=== PATIENT | male | born 1990 | race Caucasian/White ===

== ENCOUNTER 2021-09-20 09:06 | Inpatient (IN) | payer OTHER ==
[~2021-09-20] VITALS: Ht 160 cm; Wt 62.5 kg
[2021-09-20 10:43] LABS: BASO # 0.1 10^3/uL (0.0-0.2); BASO % 0.6 % (0.0-1.0); EOS % 0.4 % (0.0-3.0); HEMATOCRIT 41.2 % (42.0-52.0); LYMPH # 1.5 10^3/uL (1.5-5.0); LYMPH % 19.6 % (24.0-44.0); MEAN CORPUSCULAR HEMOGLOBIN 28.9 pg (27.0-33.0); MEAN CORPUSCULAR VOLUME 84.9 fl (80.0-96.0); MONO # 0.6 10^3/uL (0.0-0.8); MONO % 7.4 % (2.0-8.0); NEUTROPHILS # 5.5 10^3/uL (1.5-8.5); NEUTROPHILS % 71.5 % (36.0-66.0); PLATELET COUNT, AUTOMATED 230 10^3/uL (150-450); RED BLOOD COUNT 4.85 10^6/uL (4.30-6.10); WHITE BLOOD COUNT 7.8 10^3/uL (4.0-10.0)
[2021-09-20 10:54] LABS: INR 1.01; PROTHROMBIN TIME 13.7 SECONDS (12.7-14.5)
[2021-09-20 11:12] LABS: BLOOD UREA NITROGEN 16 MG/DL (7-18); CALCIUM LEVEL 10.3 MG/DL (8.5-10.1); CARBON DIOXIDE LEVEL 31 MEQ/L (21-32); CHLORIDE LEVEL 106 MEQ/L (98-107); GLOMERULAR FILTRATION RATE > 60.0 (>60); GLUCOSE, FASTING 77 MG/DL (70-100); POTASSIUM SERUM 4.5 MEQ/L (3.5-5.1); SODIUM LEVEL 142 MEQ/L (136-145)
[2021-09-20 11:21] LABS: CK-MB VALUE MASS 2.5 NG/ML (<3.6); MB/CK RELATIVE INDEX 1.13 (< OR =4)
[2021-09-20 11:43] LABS: RSV AMPLIFICATION NEGATIVE (NEGATIVE)
[2021-09-20 12:23] LABS: CK-MB VALUE MASS 2.5 NG/ML (<3.6); MB/CK RELATIVE INDEX 1.22 (< OR =4)
[2021-09-20] MEDS ORDERED: ASPIRIN 81 MG CHEW TABLET PO ONE (12:30)
[2021-09-20 16:17] LABS: CK-MB VALUE MASS 2.1 NG/ML (<3.6); MB/CK RELATIVE INDEX 1.07 (< OR =4)
[2021-09-20 18:05] LABS: C REACTIVE PROTEIN QUANTITATIV < 0.30 MG/DL (0.00-0.30)
[2021-09-20] MEDS ORDERED: ISOVUE-370 76% 100ML VIAL As Ordered ONE (18:20)
[2021-09-20 18:37] LABS: ERYTHROCYTE SEDIMENTATION RATE 3 mm/hr (0-15)
[2021-09-20] MEDS ORDERED: HOME MED LIST COMPLETE! XX SCH (20:20)
[2021-09-20] MEDS ORDERED: MAALOX 30 ML SUSP *UDC PO PRN (21:10)
[2021-09-20] MEDS ORDERED: ACETAMINOPHEN TAB 650MG DOSE (2X325MG) PO PRN (21:10)
[2021-09-20] MEDS ORDERED: MOM 30ML SUSPENSION UDC PO PRN (21:10)
[2021-09-20 23:24] LABS: ALBUMIN 3.8 GM/DL (3.2-5.2); BILIRUBIN,DIRECT 0.1 MG/DL (0.0-0.2); BILIRUBIN,TOTAL 0.5 MG/DL (0.2-1.0); CK-MB VALUE MASS 1.3 NG/ML (<3.6); MB/CK RELATIVE INDEX 0.84 (< OR =4); TOTAL PROTEIN 7.3 GM/DL (6.4-8.2)
[2021-09-20] MEDS: NS 1,000 ML IV ONE (23:38)
[2021-09-20 23:50] VITALS: BP 112/75
[2021-09-20 23:52] LABS: APPEARANCE, URINE CLEAR (CLEAR); BACTERIA, URINE AUTO NEGATIVE (NEGATIVE); BILIRUBIN, URINE AUTO NEGATIVE (NEGATIVE); BLOOD, URINE BLOOD NEGATIVE (NEGATIVE); COLOR, URINE STRAW (YELLOW); GLUCOSE, URINE (UA) AUTO NEGATIVE (NEGATIVE); KETONE, URINE AUTO NEGATIVE (NEGATIVE); LEUKOCYTE ESTERASE, URINE AUTO NEGATIVE (NEGATIVE); NITRITE, URINE AUTO NEGATIVE (NEGATIVE); PROTEIN, URINE AUTO NEGATIVE (NEGATIVE); RBC, URINE AUTO 1 /HPF (0-3); SPECIFIC GRAVITY URINE AUTO 1.048 (1.002-1.035); SQUAMOUS EPITHELIAL CELL UR AU 0 /HPF (0-6); UROBILINOGEN, URINE AUTO 0.2 mg/dL (0.0-2.0); WBC, URINE AUTO 1 /HPF (0-3)
[2021-09-21] MEDS: NS 1,000 ML IV ONE (00:44)
[2021-09-21 02:11] LABS: CK-MB VALUE MASS 1.5 NG/ML (<3.6)
[2021-09-21 06:00] VITALS: BP 99/55
[2021-09-21 06:34] LABS: HEMATOCRIT 40.4 % (42.0-52.0); HEMOGLOBIN 13.6 g/dl (13.5-17.5); MEAN CORPUSCULAR HEMOGLOBIN 28.5 pg (27.0-33.0); MEAN CORPUSCULAR HGB CONC 33.7 g/dl (32.0-36.5); MEAN CORPUSCULAR VOLUME 84.7 fl (80.0-96.0); RED BLOOD COUNT 4.77 10^6/uL (4.30-6.10); WHITE BLOOD COUNT 6.7 10^3/uL (4.0-10.0)
[2021-09-21 06:35] LABS: PLATELET COUNT, AUTOMATED 239 10^3/uL (150-450)
[2021-09-21 06:56] LABS: CK-MB VALUE MASS 1.3 NG/ML (<3.6); MB/CK RELATIVE INDEX 1.02 (< OR =4)
[2021-09-21 07:00] LABS: ALBUMIN 3.4 GM/DL (3.2-5.2); ALT/SGPT 112 U/L (12-78); BILIRUBIN,TOTAL 0.6 MG/DL (0.2-1.0); BLOOD UREA NITROGEN 17 MG/DL (7-18); CALCIUM LEVEL 8.5 MG/DL (8.5-10.1); CARBON DIOXIDE LEVEL 30 MEQ/L (21-32); CHLORIDE LEVEL 109 MEQ/L (98-107); CREATININE FOR GFR 1.05 MG/DL (0.70-1.30); GLOMERULAR FILTRATION RATE > 60.0 (>60); GLUCOSE, FASTING 91 MG/DL (70-100); POTASSIUM SERUM 4.4 MEQ/L (3.5-5.1); SODIUM LEVEL 140 MEQ/L (136-145); TOTAL PROTEIN 6.3 GM/DL (6.4-8.2)
[2021-09-21 10:32] LABS: ETHYL ALCOHOL (ETHANOL) < 0.003 % (0.000-0.010)
[2021-09-21 10:48] LABS: HEPATITIS B SURFACE ANTIGEN NEGATIVE (NEGATIVE)
[2021-09-21 10:53] LABS: CORTISOL AM 16.1 UG/DL (4.3-22.4); FERRITIN 86 NG/ML (26-388); THYROID STIMULATING HORMONE 0.725 uIU/ML (0.358-3.740)
[2021-09-21 11:14] LABS: HEPATITIS C VIRUS ABY INDEX 0.1 INDEX (<0.8)
[2021-09-21 11:15] LABS: HEPATITIS B CORE ANTIBODY IGM NEGATIVE (NEGATIVE)
[2021-09-21 11:30] VITALS: BP_SYST 102; BP_SYST 108; BP_SYST 114; BP_DIAS 63; BP_DIAS 71; BP_DIAS 72
[2021-09-21 14:32] VITALS: BP 109/73
[2021-09-21 20:39] LABS: AMPHETAMINES LEVEL URINE NEGATIVE (NEGATIVE); BARBITURATES URINE NEGATIVE (NEGATIVE); BENZODIAZEPINES URINE NEGATIVE (NEGATIVE); CANNABINOIDS URINE NEGATIVE (NEGATIVE); COCAINE METABOLITE URINE NEGATIVE (NEGATIVE); METHADONE URINE NEGATIVE (NEGATIVE); OPIATES URINE NEGATIVE (NEGATIVE); PHENCYCLIDINE URINE NEGATIVE (NEGATIVE)
[2021-09-21 22:00] VITALS: BP 110/72
[2021-09-22 02:00] VITALS: BP_SYST 104; BP_SYST 109; BP_SYST 116; BP_DIAS 67; BP_DIAS 69; BP_DIAS 72
[2021-09-22 06:00] VITALS: BP 101/59
[2021-09-22 14:00] VITALS: BP 121/70
== END 2021-09-22 21:40 | disposition home or self-care (01) | DRG 312 ==
LOC: M ED 09:06 → M ED INP 21:08 → ENRESERV 22:51 → M MSPAV 23:50
PROVIDERS: ADMIT Family Medicine; ATTEND Internal Medicine Nephrology
DX: R55 Syncope and collapse (principal); R94.5 Abnormal results of liver function studies; R77.8 Other specified abnormalities of plasma proteins; Z20.822 Contact with and (suspected) exposure to COVID-19; Z88.2 Allergy status to sulfonamides; Z88.8 Allergy status to other drugs, medicaments and biological substances; R74.01 Elevation of levels of liver transaminase levels

== ENCOUNTER 2022-04-19 19:16 | Inpatient (IN) | payer OTHER ==
[~2022-04-19] VITALS: Ht 152.4 cm; Wt 63.1 kg
[2022-04-19 20:43] LABS: HEMATOCRIT 43.8 % (42.0-52.0); HEMOGLOBIN 14.5 g/dl (13.5-17.5); MEAN CORPUSCULAR HEMOGLOBIN 28.9 pg (27.0-33.0); MEAN CORPUSCULAR HGB CONC 33.1 g/dl (32.0-36.5); MEAN CORPUSCULAR VOLUME 87.3 fl (80.0-96.0); PLATELET COUNT, AUTOMATED 224 10^3/uL (150-450); RED BLOOD COUNT 5.02 10^6/uL (4.30-6.10); WHITE BLOOD COUNT 7.8 10^3/uL (4.0-10.0)
[2022-04-19 21:14] LABS: AMPHETAMINES LEVEL URINE NEGATIVE (NEGATIVE); BARBITURATES URINE NEGATIVE (NEGATIVE); BENZODIAZEPINES URINE NEGATIVE (NEGATIVE); CANNABINOIDS URINE NEGATIVE (NEGATIVE); COCAINE METABOLITE URINE NEGATIVE (NEGATIVE); METHADONE URINE NEGATIVE (NEGATIVE); OPIATES URINE NEGATIVE (NEGATIVE); PHENCYCLIDINE URINE NEGATIVE (NEGATIVE)
[2022-04-19 21:17] LABS: ACETAMINOPHEN LEVEL < 2.0 UG/ML (10.0-20.0); ALBUMIN 4.2 G/DL (3.2-5.2); ALKALINE PHOSPHATASE 112 U/L (46-116); ALT/SGPT 55 U/L (7.0-40); AST/SGOT 40 U/L (<34); BILIRUBIN,DIRECT 0.1 MG/DL (<0.4); BILIRUBIN,TOTAL 0.4 MG/DL (0.3-1.2); BLOOD UREA NITROGEN 17 MG/DL (9-23); CALCIUM LEVEL 9.6 MG/DL (8.5-10.1); CARBON DIOXIDE LEVEL 28 MMOL/L (20-31); CHLORIDE LEVEL 105 MMOL/L (98-107); CREATININE FOR GFR 0.89 MG/DL (0.70-1.30); ETHYL ALCOHOL (ETHANOL) 0.003 % (0.000-0.010); GLOMERULAR FILTRATION RATE > 60.0 (>60); GLUCOSE, FASTING 90 MG/DL (60-100); POTASSIUM SERUM 4.3 MMOL/L (3.5-5.1); SODIUM LEVEL 141 MMOL/L (136-145); TOTAL PROTEIN 7.3 G/DL (5.7-8.2)
[2022-04-19 21:18] LABS: RSV AMPLIFICATION NEGATIVE (NEGATIVE)
[2022-04-19 21:21] LABS: SALICYLATE LEVEL < 3.0 MG/DL (<30)
[2022-04-20] MEDS ORDERED: HOME MED LIST COMPLETE! XX SCH (05:25)
[2022-04-20] MEDS ORDERED: MOM 30ML SUSPENSION UDC PO PRN (12:25)
[2022-04-20] MEDS ORDERED: MAALOX 30 ML SUSP *UDC PO PRN (12:25)
[2022-04-20] MEDS ORDERED: IBUPROFEN 400MG TAB PO PRN (12:25)
[2022-04-20] MEDS: NICOTINE 21MG/24HR 1 EA TRANSDERMAL TD SCH (13:37)
[2022-04-20 18:13] VITALS: BP 126/66
[2022-04-21 06:28] VITALS: BP 95/55
[2022-04-21] MEDS: NICOTINE 21MG/24HR 1 EA TRANSDERMAL TD SCH (09:00)
[2022-04-21 09:17] LABS: THYROID STIMULATING HORMONE 0.771 uIU/ML (0.55-4.78)
[2022-04-21] MEDS: FLUoxetine 20MG CAP PO SCH (09:39)
[2022-04-21 13:30] LABS: GC DNA AMPLIFICATION NEGATIVE (NEGATIVE)
[2022-04-21 16:20] VITALS: BP 106/57
[2022-04-21] MEDS: traZODone 50 MG TAB PO PRN (22:06)
[2022-04-22 06:22] VITALS: BP 125/58
[2022-04-22 08:32] LABS: HIV 1&2 SCREEN CENTAUR NEGATIVE (NEGATIVE)
[2022-04-22] MEDS ORDERED: guaiFENesin ER 600 MG TAB PO PRN (09:15)
[2022-04-22] MEDS: FLUoxetine 20MG CAP PO SCH (09:39)
[2022-04-22] MEDS: LIDOCAINE 5% (LIDODERM) PATCH TD SCH (09:41)
[2022-04-22] MEDS: busPIRone 5 MG TAB PO SCH ×3 (09:52→21:26)
[2022-04-22 16:42] VITALS: BP 134/63
[2022-04-22] MEDS: traZODone 50 MG TAB PO PRN (21:26)
[2022-04-23 05:52] VITALS: BP 107/55
[2022-04-23] MEDS: FLUoxetine 20MG CAP PO SCH (08:29)
[2022-04-23] MEDS: busPIRone 5 MG TAB PO SCH ×3 (08:29→21:12)
[2022-04-23] MEDS: LIDOCAINE 5% (LIDODERM) PATCH TD SCH (08:32)
[2022-04-23 18:07] VITALS: BP 114/64
[2022-04-23] MEDS: traZODone 50 MG TAB PO PRN (21:12)
[2022-04-24 06:11] VITALS: BP 99/48
[2022-04-24] MEDS: LIDOCAINE 5% (LIDODERM) PATCH TD SCH (09:00)
[2022-04-24] MEDS: FLUoxetine 20MG CAP PO SCH (09:07)
[2022-04-24] MEDS: busPIRone 5 MG TAB PO SCH (09:07)
[2022-04-24] MEDS ORDERED: BUSP5TA PO (09:28)
[2022-04-24] MEDS ORDERED: TRAZ-252 PO (09:28)
[2022-04-24] MEDS ORDERED: LIDO5TD TD (09:28)
[2022-04-24] MEDS ORDERED: FLUO20CA22 PO (09:28)
== END 2022-04-24 13:09 | disposition home or self-care (01) | DRG 885 ==
LOC: M ED 19:16 → M ED INP 04-20 12:22 → M PSY 04-20 15:32
PROVIDERS: ADMIT Student in an Organized Health Care Education/Training Program; ATTEND Student in an Organized Health Care Education/Training Program
DX: F32.89 Other specified depressive episodes (principal); F41.9 Anxiety disorder, unspecified; F60.89 Other specific personality disorders; Z88.2 Allergy status to sulfonamides; Z79.899 Other long term (current) drug therapy; F17.210 Nicotine dependence, cigarettes, uncomplicated